=== PATIENT | female | born 1995 | race Caucasian/White ===

== ENCOUNTER 2016-11-03 15:20 | Emergency (ER) | payer BC ==
[2016-11-03 16:33] LABS: HEMOGLOBIN 14.9 gm/dl (12.3-15.3); RED BLOOD COUNT 4.82 M/UL (4.00-5.10); WHITE BLOOD COUNT 8.9 K/UL (4.5-11.0)
[2016-11-03 16:49] LABS: BUN/CREATININE RATIO 14 (0-10)
== END 2016-11-03 17:47 | disposition home or self-care (01) ==
LOC: ER1 15:20
PROVIDERS: Physician Assistant
DX: E86.0 Dehydration (principal); G40.909 Epilepsy, unspecified, not intractable, without status epilepticus; F17.210 Nicotine dependence, cigarettes, uncomplicated; Z88.1 Allergy status to other antibiotic agents; Z79.899 Other long term (current) drug therapy
CPT/HCPCS: 36415; 80053; 85025; 93005; 96360; 99284; G0480; J7030

== ENCOUNTER → 2021-03-13 | Outpatient (CLI) | payer OTHER | LOC: EXRD 08:56 | DX: R10.13 Epigastric pain (principal); R14.0 Abdominal distension (gaseous) | CPT/HCPCS: 76705 ==

== ENCOUNTER → 2021-03-23 | Outpatient (CLI) | payer OTHER | LOC: NM 12:21 | DX: R10.84 Generalized abdominal pain (principal); R14.0 Abdominal distension (gaseous); R94.8 Abnormal results of function studies of other organs and systems | CPT/HCPCS: 78227; A9537; J2805 ==